=== PATIENT | female | born 1995 | race Caucasian/White ===

== ENCOUNTER 2021-11-25 09:24 | Emergency (ER) | payer BC, SELFPAY ==
--- NOTE | ~2021-11-25 | US_ITS ---
EXAMINATION: US OB limited, US OB transvaginal DATE: 11/25/2021 10:44 INDICATION: Cramping during second trimester TECHNIQUE: Real-time transabdominal and transvaginal ultrasound of the pelvis was performed. The [facility] radiologist was not present for the study. COMPARISON: None. FINDINGS: There is a single living fetus in transverse lie. The placenta is anterior and 1.3 cm from the internal cervical os. cardiac activity and movement are noted. heart rate is 14 1 beats per minute (bpm). The amniotic fluid index is subjectively normal. IMPRESSION: 1. Single living fetus in transverse lie. 2. Low-lying placenta. Reviewed, dictated and finalized at location A. ATIONS TECHNICIAN IMPRESSION: 1. Single living fetus in transverse lie. 2. Low-lying placenta.
[2021-11-25 09:30] VITALS: BP 117/70; PULSE 78; RESP 20; TEMP 36.8; O2SAT 98
--- NOTE | 2021-11-25 10:02 | ED.GENADULT ---
HPI - General Adult General Chief complaint: Abdominal Pain Stated complaint: 18 WEEKS PREG CRAMPS AND LIGHT HEADED Source: patient Mode of arrival: ambulatory History of Present Illness HPI narrative: Amber is a 26 at 18 weeks (was fertilized by IVF) with a PMH of hypothyroidism that presented to the ED with abdominal cramping that woke up up this morning. It is lower abdominal pain that comes and goes. There is nausea but no vomiting. There is no CP, SOB or cough. She denies vaginal discharge and vaginal bleeding. Related Data Home Medications Medication Instructions Recorded Confirmed levothyroxine 50 mcg PO DAILY 11/25/21 11/25/21 Review of Systems Constitutional: Constitutional: Reports no additional constitutional complaints Eyes: Eyes: Reports no additional eye complaints ENT: Reports system reviewed and no additional complaints, except as documented Cardiovascular: Cardiovascular: Reports no additional cardiovascular complaints Respiratory: Respiratory: Reports no additional respiratory complaints Gastrointestinal: Gastrointestinal: Reports as per HPI Genitourinary: Genitourinary: Reports as per HPI Musculoskeletal: Musculoskeletal: Reports no additional musculoskeletal complaints Integumentary/Breasts: Skin/Breast: Reports system reviewed and no additional complaints, except as docu Neurologic: Reports system reviewed and no additional complaints, except as documented Psychiatric: Psychiatric: Reports no additional psychiatric complaints Endocrine: Endocrine: Reports no additional endocrine complaints Hematologic/Lymphatic: Hematologic/Lymphatic: Reports no additional hematologic/lymphatic complaints Allergic/Immunologic: Allergic/Immunologic: Reports no additional allergic/immunologic complaints Exam Const: General: no acute distress and alert Orientation/consciousness: patient oriented x3 Limitations: No altered mental status HENMT: Head: normal to inspection Other: normocephalic, atraumatic Eyes: Pupils: Equal, round and reactive pupils present Neck: Neck: normal visual inspection Chest: Chest palpation & inspection: normal inspection of the chest Resp: Effort & Inspection: normal respiratory effort, not labored and not tachypneic Cardio: Rate: regular rate GI: Inspection: non-distended GI Palp: Yes Soft to palpation, No Tenderness to palpation present (GI) and No Guarding due to palpation present (GI) : General: Yes no CVA tenderness Back/Spine/Pelvis: Back: no CVA tenderness Skin: General skin exam: normal color Rashes: no rashes Neuro: General: patient oriented x3 and moves all extremities Extrem: General: normal to inspection Psych: Appearance: grossly normal Mental Status: mental status grossly normal Course Course Emergency Course: Declined meds for pain or nausea. Ordered labs and US. DD/ 52TD/TT: / EXAMINATION: US OB limited, US OB transvaginal DATE: 11/25/2021 10:44 INDICATION: Cramping during second trimester TECHNIQUE: Real-time transabdominal and transvaginal ultrasound of the pelvis was performed. The interpreting radiologist was not present for the study. COMPARISON: None. FINDINGS: There is a single living fetus in transverse lie. The placenta is anterior and 1.3 cm from the internal cervical os. cardiac activity and movement are noted. heart rate is 141 beats per minute (bpm). The amniotic fluid index is subjectively normal. IMPRESSION: 1. Single living fetus in transverse lie. 2. Low-lying placenta. Labs and US are reassuring. She was instructed to follow up with her OB physician. Medical Decision Making Lab Data Result diagrams: 11/25/21 10:15 11/25/21 10:15 Labs: Lab Results 11/25/21 11/25/21 11/25/21 Range/Units 10:15 10:15 10:15 WBC 8.0 (4.8-10.8) K/mm3 RBC 3.69 L (4.20-5.40) M/mm3 Hgb 11.4 L (12.0-15.0) g/dL Hct 33.5 L (35.
[2021-11-25 10:23] LABS: Basophils Absolute Auto 0.02 K/mm3 (0.00-0.10); Basophils Percent Auto 0.3 % (0.0-1.0); Eosinophils Absolute Auto 0.03 K/mm3 (0.02-0.50); Eosinophils Percent Auto 0.4 % (1.0-6.0); Hematocrit 33.5 % (35.0-49.0); Hemoglobin 11.4 g/dL (12.0-15.0); Immature Granulocyte Absolute 0.02 K/mm3 (0.00-0.00); Immature Granulocyte Percent A 0.3 % (0.0-0.0); Lymphocytes Percent Auto 11.3 % (18.0-42.0); Mean Corpuscular Hemoglobin 30.9 pg (27.0-31.0); Mean Corpuscular Volume 90.8 fL (78.0-102.0); Mean Platelet Volume 11.1 fl (9.2-11.8); Monocytes Absolute Auto 0.45 K/mm3 (0.10-0.90); Monocytes Percent Auto 5.6 % (2.0-11.0); Neutrophils Absolute Auto 6.6 K/mm3 (1.7-7.2); Neutrophils Percent Auto 82.1 % (50.0-70.0); Platelet Count Result 160 K/mm3 (150-420); Red Blood Count 3.69 M/mm3 (4.20-5.40); Red Cell Distribution Width 12.4 % (11.6-14.4)
[2021-11-25 10:25] LABS: Add Urine Microscopic? NO; Appearance Urine Clear (Clear); Bilirubin Urine Negative (Negative); Blood Urine Negative (Negative); Color Urine Yellow (Yellow); Glucose Urine UA Negative (Negative); Ketones Urine Negative (Negative); Leukocyte Esterase Ur Negative (Negative); Nitrate Urine Negative (Negative); Protein Urine Negative (Negative); Urobilinogen Urine 0.2 mg/dL (0.2-1.0)
[2021-11-25 10:31] LABS: Prothrombin Time 10.2 Seconds (9.50-12.10)
[2021-11-25 10:46] LABS: Alanine Aminotransferase 26 U/L (14-59); Albumin Level 3.1 g/dL (3.4-5.0); Alkaline Phosphatase 42 U/L (46-116); Anion Gap 10 mmol/L (8-16); Aspartate Amino Transferase 16 U/L (15-37); Bilirubin,Total 0.2 mg/dL (0.00-1.00); Blood Urea Nitrogen 8 mg/dL (7-18); Calcium 8.6 mg/dL (8.5-10.1); Carbon Dioxide 24 mmol/L (21-32); Chloride 102 mmol/L (98-108); Estimated Glomerular Filt Rate > 60; Glucose 99 mg/dL (70-99); Lipase 52 U/L (73-393); Osmolality Calculated 280 mOsm/kg (285-295); Potassium 3.9 mmol/L (3.5-5.1); Sodium 136 mmol/L (136-145); Thyroid Stimulating Hormone 2.29 uIU/mL (0.36-3.74); Total Protein 6.9 g/dL (6.4-8.2)
[2021-11-25 10:54] LABS: Lactic Acid Reflex < 0.3 mmol/L (0.4-2.0)
== END 2021-11-25 11:09 | disposition home or self-care (01) ==
PROVIDERS: Emergency Provider Family Medicine; PCP Physician Assistant
DX: R10.9 Unspecified abdominal pain (principal)
CPT/HCPCS: 36415; 76815; 76817; 80053; 81003; 83605; 83690; 84443; 85025; 85610; 99284

== ENCOUNTER 2022-04-21 15:43 | Inpatient (IN) | payer BC, SELFPAY ==
[2022-04-21] VITALS (21 sets, daily range): BP systolic 97–146; BP diastolic 71–98; PULSE 65–91; TEMP 36.6–36.9; O2SAT 94–96; BMI 33.2
--- OUTSIDE RECORDS SUMMARY | 2022-04-21 15:54 | XMS_ITS ---
:1995 Author Care Team Providers Name Role Phone [facility] Primary Care Provider [phone] Allergies Code Code System Name Reaction Severity Status Onset NKDA ? Medications Name Status Start Date Stop Date ? ? azithromycin 250 mg tablet Completed ? 10/18 Baby Aspirin Active ? Not available Cetrotide 0.25 mg subcutaneous kit Completed ? 10/18/2021 chorionic gonadotropin, human 10,000 unit intramuscular Complete d ? 11/22/2021 solution doxycycline hyclate 100 mg capsule Completed ? 11/22/2021 estradiol 2 mg tablet Completed ? 11/22/2021 Gonal-F RFF Redi-Ject 900 unit/1.5 mL subcutaneous pen Completed ? 11/22/2021 injector leuprolide 1 mg/0.2 mL subcutaneous kit Completed ? 11/22/2021 levothyroxine 25 mcg tablet Completed ? 10/08 levothyroxine 50 mcg tablet Active ? Not available Menopur 75 unit subcutaneous solution Completed ? 11/22/2021 Marie 0.25 mg-35 mcg tablet Completed ? 11/22 Active ? Not available progesterone 50 mg/mL intramuscular oil Completed ? 11/22/2021 Problems Name Status Onset Date Source ? Male Infertility Active 01/24/2021 ? Active 10/18/2021 ? Hypothyroidism Active ? ? Care: History of Infertility Active ? ? IVF - In-vitro Fertilization Active ? ? Procedures Date Name Performed by ? 12/06/2017 Appendectomy Information not avai lable 01/21/2021 , Transvaginal [place] [address] [place], [place] [address]
--- OUTSIDE RECORDS SUMMARY | 2022-04-21 15:55 | XMS_ITS | Encounter Summary ---
:1995 Author Care Team Providers Name Role Phone Shona [facility] Primary Care Provider [phone] Reason for Visit None recorded. Assessment and Plan 1. IVF - in-vitro fertilization pregnan cy ? non-stress test Discussion Note: None recorded.Patient educational handouts: No information available. Plan of Care Reminders Provider Appointments Nst 04/25/2022 9:30AM Nst, , EQUIP ? Ob Routine 04/25/2022 10:30AM Connie Marie MD ? U/S OB BPP 04/25/2022 10:00AM Ultrasound, TECH ? Nst 05/02/2022 9:00AM Nst, , EQUIP ? / OB BPP 05/02/2022 9:30AM Ultrasound, TECH ? Ob Routine 05/09/2022 10:30AM Connie Marie MD ? U/S OB BPP 05/09/2022 10:00AM Ultrasound, TECH ? Nst 05/09/2022 9:30AM Nst, , EQUIP Lab None recorded. ? ? Referral None recorded. ? ? Procedures None recorded. ? ? Surgeries None recorded. ? ? Imaging Non-stress Test 04/11/2022 [place] Medications Name Start Date ? ? Baby Aspirin ? levothyroxine 50 mcg tablet ? Take 1 tablet every day by oral route. ? Medications Administered None recorded. Vitals None recorded. Results Lab Results None recorded. Allergies Code Code System Name Reaction Severity Onset NKDA ? ? ? Problems Name Status Onset Date Source ? Male Infertility Active 01/24/2021 ? Active 10/18/2021 ? Hypothyroidism Active ? ? Care: History of Infertility Active ? ?
--- OUTSIDE RECORDS SUMMARY | 2022-04-21 15:55 | XMS_ITS | Encounter Summary ---
:1995 Author Care Team Providers Name Role Phone Shona [facility] Primary Care Provider [phone] Reason for Visit None recorded. Assessment and Plan 1. IVF - in-vitro fertilization pregnan cy ? US, obstetric, biophysical profile + non-stress test Discussion Note: None recorded.Patient educational handouts: No information available. Plan of Care Reminders Provider Appointments Nst 04/25/2022 Nst, , EQUIP 9:30AM ? Ob Routine 04/25/2022 Connie mcadams MD 10:30AM ? U/S OB BPP 04/25/2022 Ultrasound, [place] 10:00AM ? Nst 05/02/2022 Nst, , EQUIP 9:00AM ? U/S OB BPP 05/02/2022 Ultrasound, [place] 9:30AM ? Ob Routine 05/09/2022 Connie mcadams MD 10:30AM ? U/S OB BPP 05/09/2022 Ultrasound, [place] 10:00AM ? Nst 05/09/2022 Nst, , [place]QU[place] 9:30AM Lab None recorded. ? ? Referral None recorded. ? ? Procedures None recorded. ? ? Surgeries None recorded. ? ? Imaging US, Obstetric, Biophysical 04/18/2022 [place] Profile + Non-stress Test Medications Name Start Date ? ? Baby Aspirin ? levothyroxine 50 mcg tablet ? Take 1 tablet every day by oral route. ? Medications Administered None recorded. Vitals None recorded. Results Lab Results
--- OUTSIDE RECORDS SUMMARY | 2022-04-21 15:55 | XMS_ITS | Encounter Summary ---
:1995 Author Care Team Providers Name Role Phone Shona [facility] Primary Care Provider [phone] Reason for Visit OB visit Assessment and Plan 1. Hypothyroidism 2. IVF - in-vitro fertilization pregnan cy 3. care: history of infertili ty Discussion Note: None recorded.Patient educational handouts: No information available. Plan of Care Reminders Provider Appointments Nst 04/25/2022 9:30AM Nst, , EQUIP ? Ob Routine 04/25/2022 10:30AM Connie Marie MD ? /S OB BPP 04/25/2022 10:00AM Ultrasound, TECH ? Nst 05/02/2022 9:00AM Nst, , EQUIP ? / OB BPP 05/02/2022 9:30AM Ultrasound, TECH ? Ob Routine 05/09/2022 10:30AM Connie Marie MD ? / OB BPP 05/09/2022 10:00AM Ultrasound, TECH ? Nst 05/09/2022 9:30AM Nst, , EQUIP Lab None recorded. ? ? Referral None recorded. ? ? Procedures None recorded. ? ? Surgeries None recorded. ? ? Imaging None recorded. ? ? Medications Name Start Date ? ? Baby Aspirin ? levothyroxine 50 mcg tablet ? Take 1 tablet every day by oral route. ? Medications Administered None recorded. Vitals Height Weight BMI Blood Pressure 5 ft 9 in 232 lbs 34.3 kg/m2 118/77 mm[Hg] Results Lab Results None recorded. Allergies Code Code System Name Reaction Severity Onset NKDA ? ? ? Problems Name Status Onset Date Source ? Male Infertility Active 01/24/2021 ?
--- OUTSIDE RECORDS SUMMARY | 2022-04-21 15:55 | XMS_ITS | Encounter Summary ---
:1995 Author Care Team Providers Name Role Phone Shona [facility] Primary Care Provider [phone] Reason for Visit None recorded. Assessment and [...] None recorded. ? ? Imaging Non-stress Test 04/04/2022 [place] Medications Name Start Date ? ? Baby [...]
--- OUTSIDE RECORDS SUMMARY | 2022-04-21 15:55 | XMS_ITS | Encounter Summary ---
:1995 Author Care Team Providers Name Role Phone Shoan [facility] Primary Care Provider [phone] Reason for Visit None recorded. Assessment and Plan 1. care: history of infertili ty ? US, obstetric, follow-up ? US, obstetric, biophysical profile + non-stress [...] None recorded. ? ? Imaging US, Obstetric, Follow-up 04/04/2022 [place] ? US, Obstetric, Biophysical 04/04/2022 [place] Profile + Non-stress Test Medications Name Start Date ? ? Baby Aspirin ? levothyroxine 50 mcg tablet ? Take 1 tablet every day by oral route. ? Medications Administered
--- OUTSIDE RECORDS SUMMARY | 2022-04-21 15:55 | XMS_ITS | Encounter Summary ---
:1995 Author Care Team Providers Name Role Phone Shona [facility] Primary Care Provider [phone] Reason for Visit OB visit Assessment and Plan 1. care: history of infertili ty 2. Hypothyroidism 3. IVF - in-vitro fertilization pregnan cy Discussion Note: None recorded.Patient educational handouts: No information available. Plan of Care Reminders Provider Appointments Nst 04/25/2022 9:30AM Nst, , EQUIP ? Ob Routine 04/25/2022 10:30AM Connie Marie MD ? / OB BPP 04/25/2022 10:00AM Ultrasound, TECH ? [...] BMI Blood Pressure 5 ft 9 in 228 lbs 33.7 kg/m2 101/68 mm[Hg] Results Lab Results None recorded. Allergies Code Code System Name Reaction Severity Onset NKDA ? ? ? Problems Name Status Onset Date Source ? Male Infertility Active 01/24/2021 ?
--- OUTSIDE RECORDS SUMMARY | 2022-04-21 15:55 | XMS_ITS ---
:1995 Author Care Team Providers Name Role Phone COURTNEY ALVARADO MD [employer] [phone] Allergies Code Code System Name Reaction Severity Status Onset NKDA ? Medications Name Status Start Date Stop Date ? ? Microgestin FE 10/27 (28) 1 mg-20 mcg (21)/75 mg (7) tablet Activ e ? Not available Take 1 tablet every day by oral route. Mirena 20 mcg/24 hours (7 yrs) 52 mg intrauterine device Active ? Not available Take by intrauterine route. Problems No Known Problems Procedures Date Name Performed by ? 12/06/2018 Appendectomy Information not avai lable Results Lab Results None recorded. Past Encounters None recorded. Social History Tobacco Smoking Status Never Smoker Vaccine List None recorded. Plan of Care Reminders Provider Appointments None recorded. ? ? Lab None recorded. ? ? Referral None recorded. ? ? Procedures None recorded. ? ? Surgeries None recorded. ? ? Imaging None recorded. ? ? Vitals Height Weight BMI Blood Pressure 5 ft 9 in 181 lbs 9.6 oz 26.8 kg/m2 120/80 mm[Hg]
--- OUTSIDE RECORDS SUMMARY | 2022-04-21 15:55 | XMS_ITS | Encounter Summary ---
:1995 Author Care Team Providers Name Role Phone Shona [facility] Primary Care Provider [phone] Reason for Visit OB visit Assessment and Plan 1. care: history of infertili ty 2. IVF - in-vitro fertilization pregnan cy 3. Hypothyroidism Discussion Note: None recorded.Patient educational handouts: No [...] BMI Blood Pressure 5 ft 9 in 230 lbs 34 kg/m2 112/70 mm[Hg] Results Lab Results None recorded. Allergies Code Code System Name Reaction Severity Onset NKDA ? ? ? Problems Name Status Onset Date Source ? Male Infertility Active 01/24/2021 ?
--- OUTSIDE RECORDS SUMMARY | 2022-04-21 15:55 | XMS_ITS | Encounter Summary ---
:1995 Author Care Team Providers Name Role Phone Shona [facility] Primary Care Provider [phone] Reason for Visit OB visit Assessment and Plan 1. care: history of infertili ty 2. IVF - in-vitro fertilization pregnan cy Discussion [...] BMI Blood Pressure 5 ft 9 in 235 lbs 34.7 kg/m2 130/77 mm[Hg] Results Lab Results None recorded. Allergies Code Code System Name Reaction Severity Onset NKDA ? ? ? Problems Name Status Onset Date Source ? Male Infertility Active 01/24/2021 ? Active 10/18/2021 ?
--- OUTSIDE RECORDS SUMMARY | 2022-04-21 15:55 | XMS_ITS | Encounter Summary ---
:1995 Author Care Team Providers Name Role Phone Shona [facility] Primary Care Provider [phone] Reason for Visit OB visit Assessment and Plan 1. Routine care 2. Hypothyroidism ? levothyroxine 50 mcg tablet 3. IVF - in-vitro fertilization pregnan cy [...] ft 9 in 228 lbs 33.7 kg/m2 102/66 mm[Hg] Results Lab Results None recorded. Allergies Code Code System Name Reaction Severity Onset NKDA ? ? ? Problems Name Status Onset Date Source ? Male Infertil
--- OUTSIDE RECORDS SUMMARY | 2022-04-21 15:55 | XMS_ITS | Encounter Summary ---
:1995 Author Care Team Providers Name Role Phone Shona [facility] Primary Care Provider [phone] Reason for Visit OB visit OB [id number] EDC 04/28/2022 LMP 01/11/2021 Assessment and Plan Assessment Note Patient is _37__weeks . Discuss ed plan. 1. Routine care Discussion Note: None recorded.Patient educational handouts: No [...] ft 9 in 235 lbs 34.7 kg/m2 113/74 mm[Hg] Results Lab Results None recorded. Allergies Code Code System Name Reaction Severity Onset NKDA ? ? ? Problems Name Status Onset Date Source ?
--- OUTSIDE RECORDS SUMMARY | 2022-04-21 15:55 | XMS_ITS | Encounter Summary ---
:1995 Author Care Team Providers Name Role Phone Shona [facility] Primary Care Provider [phone] Reason for Visit None recorded. Assessment and [...] recorded. ? ? Imaging US, Obstetric, Biophysical 04/11/2022 [place] Profile + Non-stress Test Medications Name Start Date ? ? Baby Aspirin ? levothyroxine 50 mcg tablet ? Take 1 tablet every day by oral route. ? Medications Administered None recorded. Vitals None recorded. Results Lab Results
--- OUTSIDE RECORDS SUMMARY | 2022-04-21 15:55 | XMS_ITS | Encounter Summary ---
:1995 Author Care Team Providers Name Role Phone Shona [facility] Primary Care Provider [phone] Reason for Visit None recorded. Assessment and [...] None recorded. ? ? Imaging Non-stress Test 04/18/2022 [place] Medications Name Start Date ? ? Baby [...]
--- OUTSIDE RECORDS SUMMARY | 2022-04-21 15:55 | XMS_ITS | Encounter Summary ---
:1995 Author Care Team Providers Name Role Phone Shona [facility] Primary Care Provider [phone] Reason for Visit OB visit Assessment and Plan 1. care: history of infertili ty 2. Hypothyroidism Discussion Note: None recorded.Patient educational handouts: [...] BMI Blood Pressure 5 ft 9 in 237 lbs 35 kg/m2 132/74 mm[Hg] Results Lab Results None recorded. Allergies Code Code System Name Reaction Severity Onset NKDA ? ? ? Problems Name Status Onset Date Source ? Male Infertility Active 01/24/2021 ? Active 10/18/2021 ? Hypothyroidism Ac
[2022-04-21] MEDS: OXYTOCIN 30 UNITS/NS 500 ML 30 UNITS/500 ML BAG IV CONT (17:00)
[2022-04-21] MEDS: LACTATED RINGERS 1,000 ML 125 ML IV CONT (17:00)
[2022-04-21 17:15] LABS: Basophils Percent Auto 0.3 % (0.2-1.2); Eosinophils Percent Auto 0.7 % (0-4.4); Hematocrit 29.4 % (37.0-47.0); Hemoglobin 9.4 g/dL (12.0-15.0); Immature Granulocyte Absolute 0.02 K/mm3 (0.00-0.031); Immature Granulocyte Percent A 0.3 % (0-0.5); Lymphocytes Absolute Auto 1.11 K/mm3 (0.9-3.2); Lymphocytes Percent Auto 18.6 % (18.3-44.2); Mean Corpuscular Hemoglobin 26.8 pg (26-34); Mean Corpuscular Volume 83.8 fl (80-100); Monocytes Absolute Auto 0.5 K/mm3 (0.1-0.6); Monocytes Percent Auto 8.2 % (2.6-8.5); Neutrophils Absolute Auto 4.3 K/mm3 (1.3-6.7); Neutrophils Percent Auto 71.9 % (45.5-73.1); Platelet Count Result 155 k/mm3 (150-375); Red Blood Count 3.51 M/mm3 (4.2-5.4); Red Cell Distribution Width 14.6 % (11.5-14.5)
--- NOTE | 2022-04-21 18:56 | LDADM ---
This patient, Amber Fuentes, was admitted to Labor/Delivery/Recovery 104 on 04/21/22 at 15:43. Plans for labor, pain management and were discussed with patient. Patient/family oriented to hospital policies and general routines including ID bracelet, bed and alarms, visiting hours, pain management, procedures, bathroom and other care routines, personal items, smoking policy, room service/diet and guest tray routines, security routines, and visiting hours. Patient/Family are encouraged to report perceived risks to care and to ask questions if they do not understand what they are told or what they should do. See OBIX for further documentation.
--- NOTE | 2022-04-21 18:58 | WPDANESEPP ---
Anes - Eval Pre Procedure Procedure: Labor epidural Date/Time: 04/21/22 18:58 Surgeon: Frank Preop Diagnosis: Abd pain with contractions Pre Op Diagnosis: Induction of Labor Patient Data Age: 26 Gender: F Height: Weight: Last Vital Signs Pulse 87 04/21/22 18:30 BP 123/98 H 04/21/22 18:30 Allergies Allergy/AdvReac Type Severity Reaction Status Date / Time No Known Allergies Allergy Verified 04/01/22 15:31 Home Medications Medication Instructions Recorded Confirmed Type levothyroxine 50 mcg tablet 50 mcg PO DAILY 11/25/21 11/25/21 History ferrous sulfate 195 mg (39 mg 35 mg PO DAILY 04/01/22 04/01/22 History iron) tablet prenat.vits,coral,jof-gpgd-fupsu 1 tablet PO DAILY 04/01/22 04/01/22 History Laboratory Tests 04/21/22 04/21/22 04/21/22 17:06 17:06 17:06 WBC 6.0 K/mm3 K/mm3 (4.5-10.0) RBC 3.51 M/mm3 L M/mm3 (4.2-5.4) Hgb 9.4 g/dL L g/dL (12.0-15.0) Hct 29.4 % L % (37.0-47.0) MCV 83.8 fl fl (80-100) MCH 26.8 pg pg (26-34) MCHC 32.0 g/dl g/dl (32-36) RDW 14.6 % H % (11.5-14.5) Plt Count 155 k/mm3 k/mm3 (150-375) MPV 12.0 fl H fl (7.4-10.4) Immature Gran % (Auto) 0.3 % % (0-0.5) Neut % (Auto) 71.9 % % (45.5-73.1) Lymph % (Auto) 18.6 % % (18.3-44.2) [place] % (Auto) 8.2 % % (2.6-8.5) Eos % (Auto) 0.7 % % (0-4.4) Baso % (Auto) 0.3 % % (0.2-1.2) Lymph # (Auto) 1.11 K/mm3 K/mm3 (0.9-3.2) [place] # (Auto) 0.5 K/mm3 K/mm3 (0.1-0.6) Eos # (Auto) 0.0 K/mm3 K/mm3 (0-0.3) Baso # (Auto) 0.0 K/mm3 K/mm3 (0.0-0.1) Abs Immat Gran (auto) 0.02 K/mm3 K/mm3 (0.00-0.031) Absolute Neuts (auto) 4.3 K/mm3 K/mm3 (1.3-6.7) Absolute Nucleated RBC 0.0 K/mm3 K/mm3 (0.0-0.012) Nucleated RBC % 0.0 % % (0.0-0.2) RPR Pending Blood Type A Positive Antibody Screen Pending HCG: positive Patient hx anesthesia problems: none Family hx anesthesia problems: none Results Review: All pre-operative results and documents have been reviewed as part of the pre-operative evaluation. [facility] Past Medical History Medical History (Updated 04/21/22 @ 19:00 by Gilbert Fay CRNA) Overweight (BMI 25.0-29.9) and not yet delivered Family History Family History Other Healthy adult Social History Social History Substance use: never Spiritual care concerns: No Exam Day of Procedure 04/21/22 18:58 Patient weight: overweight Airway: Mallampati scale class II Neurological: alert and oriented
--- NOTE | 2022-04-21 19:08 | P.HP_ITS ---
H&P: HPI History of Present Illness Date/Time: 04/21/22 19:08 Chief Complaint: induction of labor Narrative: Amber is a 26yo G1 at 39.0 for IOL, elective. complicated by hypothyroidism, and IVF for male factor, sperm donor. GBS neg. Review of Systems Review of Systems: All systems reviewed & are unremarkable except as noted in HPI and below PMFSH Past Medical History Medical History (Updated 04/21/22 @ 19:13 by Connie Marie MD) Overweight (BMI 25.0-29.9) and not yet delivered Family History Family History Other Healthy adult Social History Social History Smoking status: Never smoker Substance use: never Spiritual care concerns: No Meds Home Medications and Allergies Home Medications Medication Instructions Recorded Confirmed Type levothyroxine 50 mcg tablet 50 mcg PO DAILY 11/25/21 04/21/22 History ferrous sulfate 195 mg (39 mg 35 mg PO DAILY 04/01/22 04/21/22 History iron) tablet prenat.vits,coral,bpu-toxh-hufhx 1 tablet PO DAILY 04/01/22 04/21/22 History Allergies Allergy/AdvReac Type Severity Reaction Status Date / Time No Known Allergies Allergy Verified 04/01/22 15:31 Vital Signs Vital Signs - 24 hr 04/21/22 16:15 04/21/22 16:30 04/21/22 16:45 Pulse Rate 70 75 76 Blood Pressure 128/77 122/75 120/76 Oxygen Delivery 04/21/22 17:00 04/21/22 17:15 04/21/22 17:30 Pulse Rate 68 68 73 Blood Pressure 114/71 118/73 130/75 Oxygen Delivery 04/21/22 18:00 04/21/22 18:30 04/21/22 19:00 Pulse Rate 74 87 76 Blood Pressure 132/74 123/98 H 119/76 Oxygen Delivery 04/21/22 17:00 Pulse Rate Blood Pressure Oxygen Delivery Room Air Exam Const: General: no acute distress Resp: Effort & Inspection: normal respiratory effort Auscultation: clear to auscultation bilaterally Cardio: Rate: regular rate Rhythm: regular rhythm GI: GI Palp: Yes Soft to palpation Extrem: General: normal to inspection H&P: Results Labs Labs: Short CBC 04/21/22 Range/Units 17:06 WBC 6.0 (4.5-10.0) K/mm3 Hgb 9.4 L (12.0-15.0) g/dL Hct 29.4 L (37.0-47.0) % Plt Count 155 (150-375) k/mm3 Assessment and Plan Assessment and plan (1) conceived through in vitro fertilization: Code(s): O09.819 - Supervision of resulting from assisted reproductive t echnology, unspecified trimester Status: Acute (2) Anemia: Code(s): D64.9 - Anemia, unspecified Status: Acute Additional Plan Here for induction of labor- elective GBS neg AROM clear 1.5/-2 FHT category 1
[2022-04-21] MEDS: fentaNYL CITRATE INJ (*CRX) 100 MCG/2 ML VIAL 50 MCG IV PUSH (23:45)
[2022-04-22] VITALS (147 sets, daily range): BP systolic 95–169; BP diastolic 50–138; PULSE 64–137; RESP 16–18; TEMP 35.9–37.1; O2SAT 93–100
[2022-04-22] MEDS: LACTATED RINGERS 1,000 ML 125 ML IV CONT
[2022-04-22] MEDS: fentaNYL CITRATE INJ (*CRX) 100 MCG/2 ML VIAL 50 MCG IV PUSH (00:05)
[2022-04-22] MEDS: fentaNYL CITRATE INJ (*CRX) 100 MCG/2 ML VIAL IV PUSH (01:05)
[2022-04-22] MEDS: METHYLERGONOVINE MALEATE 0.2 MG/ML VIAL IM (06:55)
[2022-04-22] MEDS: miSOPROStol 200 MCG TABLET 800 MCG (07:04)
[2022-04-22] MEDS: OXYTOCIN 30 UNITS/NS 500 ML 30 UNITS/500 ML BAG 999 UNITS IV CONT (07:10)
[2022-04-22] MEDS: ceFAZolin 2 GM/D5W 50 ML 2 GM/50 ML BAG IVPB (07:18)
--- NOTE | 2022-04-22 07:21 | PM.OBPRVD ---
OB - Delivery Note Procedure Delivery date: 04/22/22 Procedure: Induction method: AROM and Per Pitocin Protocol Delivery monitor: External FHT and Internal Uterine Route of delivery: Laceration Description: Perineal - 2nd Degree Delivery repair: vicryl Quantitative Blood Loss (ml): 815 Anesthesia type: Epidural Disposition: Floor Complications: hemorrhage due to atony. membranes teased out with ring forceps. treated with pitocin, methergine, cytotec. manually removed clots x5. ancef 2gm given. atony gradually resolved. mom temp 100.5 right at delivery. Narrative: With adequate expulsive efforts by the mother, the baby's head was delivered OA. The baby's anterior shoulder was delivered under the pubic symphysis without difficulty. The posterior shoulder and the rest of the baby delivered without difficulty. The infant was placed on the mothers chest and suctioned and stimulated. The cord was clamped and cut after 30 seconds. Mother and baby both stable. [place] Baby Date of : 04/22/22 Time of : 06:35 Weeks of gestation at delivery: 39 gender: Female Weight (pounds): 9 Weight (ounces): 6 presentation: vertex position: Left Occiput Posterior Placenta delivery description: Spontaneous Cord Vessel Description: 3 Vessels and Delayed Cord Clamping score one minute: 8 score five minutes: 9
[2022-04-22] MEDS: IBUPROFEN 600 MG TABLET (07:26)
[2022-04-22 11:30] LABS: Basophils Percent Auto 0.2 % (0.2-1.2); Hemoglobin 9.1 g/dL (12.0-15.0); Immature Granulocyte Absolute 0.08 K/mm3 (0.00-0.031); Immature Granulocyte Percent A 0.6 % (0-0.5); Lymphocytes Absolute Auto 0.74 K/mm3 (0.9-3.2); Lymphocytes Percent Auto 5.2 % (18.3-44.2); Mean Corpuscular HGB Conc 32.5 g/dl (32-36); Mean Corpuscular Hemoglobin 26.8 pg (26-34); Mean Corpuscular Volume 82.4 fl (80-100); Mean Platelet Volume 11.7 fl (7.4-10.4); Monocytes Absolute Auto 0.8 K/mm3 (0.1-0.6); Monocytes Percent Auto 5.7 % (2.6-8.5); Neutrophils Absolute Auto 12.6 K/mm3 (1.3-6.7); Neutrophils Percent Auto 88.3 % (45.5-73.1); Platelet Count Result 144 k/mm3 (150-375); Red Cell Distribution Width 14.6 % (11.5-14.5); White Blood Count 14.3 K/mm3 (4.5-10.0)
[2022-04-22] MEDS: IBUPROFEN 600 MG TABLET PO ×2 (14:30→21:04)
[2022-04-22 15:25] LABS: Hemoglobin 8.7 g/dL (12.0-15.0)
--- NOTE | 2022-04-22 15:25 | PC.NURSE ---
0920 Patient transferred to post room #283 via wheelchair( ). Support person present. Oriented to unit, room, information board, rooming in, admission packet and security measures. Patient verbalizes understanding.
[2022-04-22] MEDS: DOCUSATE SODIUM 100 MG CAPSULE PO (16:47)
[2022-04-23 03:30] VITALS: BP 110/69; PULSE 77; RESP 18; TEMP 36.6; O2SAT 99
[2022-04-23 05:43] LABS: Hematocrit 26.7 % (37.0-47.0); Hemoglobin 8.3 g/dL (12.0-15.0)
[2022-04-23] MEDS: DOCUSATE SODIUM 100 MG CAPSULE PO (06:30)
[2022-04-23] MEDS: LANOLIN (LANSINOH) 7.5 GM CREAM 1 APPLIC TOPICAL (06:30)
[2022-04-23] MEDS: POLYSACCHARIDE IRON COMPLEX 150 MG CAPSULE PO (06:30)
[2022-04-23] MEDS: BENZOCAINE 20% AER SPR (*SP) 56 GM CAN 1 SPRAY TOPICAL (06:30)
[2022-04-23] MEDS: IBUPROFEN 600 MG TABLET PO (06:30)
[2022-04-23] MEDS: LEVOTHYROXINE SODIUM 50 MCG TABLET PO (06:30)
[2022-04-23] MEDS: MULTIVIT/MIN/PREN/FOL AC/IRON TABLET 1 TAB PO (06:30)
[2022-04-23 07:15] VITALS: BP 119/74; PULSE 87; RESP 14; RESP 18; TEMP 36.8; O2SAT 99
[2022-04-23] MEDS: WITCH HAZEL 40 PADS 1 PAD TOPICAL (08:34)
--- NOTE | 2022-04-23 11:45 | P.PNOB_ITS ---
OB - PN: Subj Subjective Date/time seen: 04/23/22 11:45 Patient comments: no complaints and pain well controlled baby status: doing well and nursing well [place] feeding status: exclusively breast feeding Narrative: would like DC home tomorrow. OB - PN: Obj Data Labs CBC & Chem 7: 04/23/22 05:29 Labs: Laboratory Results - last 24 hr 04/22/22 04/23/22 15:14 05:29 Hgb 8.7 L 8.3 L Hct 27.0 L 26.7 L OB - PN A/P Plan day: 1 Plan: routine care Comments: Doing well. NO anemia sx except mild SOB. s/p IV iron yesterday. would like DC home today. Time Spent With Patient Time: Total time spent is greater than 50% in coordination of care (as documented) at patient's floor/unit and/or counseling patient: Time with patient: less than 15 minutes Exam Narrative: NAD abdomen soft, nontender, fundus firm below the umbilicus Extremities nontender, 1+ edema
--- NOTE | 2022-04-23 11:49 | PM.OBDSVD ---
DS: Admitting Diagnosis Discharge Date 04/23/22 Admitting Diagnosis term IUP DS: Discharge Diagnosis Discharge Diagnosis (1) , delivered: Code(s): O80 - Encounter for full-term uncomplicated delivery Status: Acute (2) Anemia: Code(s): D64.9 - Anemia, unspecified Status: Acute OB - DS: Summary Hospital Course Hospital Course: Amber was admitted for elective IOL at 39w for her IVF . She had an uncomplicated labor, delivery, and course, except for hemorrhage at delivery. She was anemic following delivery and received oral and IV iron. She was discharged home on PPD1 per her preference. OB Procedures : NST and Ultrasound OB Procedures Intrapartum: Spontaneous Vag Delivery OB Procedures: : None Peripartum Data Infant Delivery Method: Natural Vaginal Laceration Description: Perineal - 2nd Degree complications: none Status at Discharge Functional status at discharge: independent ambulation Time Spent with Patient Time attestation: Total time spent providing and/or coordinating discharge services: DS: Data Data Completed and Pending Labs on day of discharge: Labs from last 24 hours 04/23/22 04/22/22 05:29 15:14 Hgb 8.3 L 8.7 L Hct 26.7 L 27.0 L Discharge Plan Discharge Attending physician on discharge: Connie Marie Discharging Clinician: Connie Marie Anticipated Discharge Date/Time: 04/23/22 13:00 Patient Disposition: Home, Self-Care Activity: pelvic rest Diet: regular Patient Instructions: Antibiotic Form Stand Alone Forms: General Discharge Information Follow-up/Referrals: Connie Marie MD [Physician] - 4 Weeks Discharge Medications: Continued levothyroxine 50 mcg tablet 50 mcg PO DAILY ferrous sulfate 195 mg (39 mg iron) Tablet 35 mg PO DAILY #2 Tablet 1 tablet PO DAILY Date of admission: 04/21/22 15:43 Primary Care Provider: MagnusRyan Admitting Provider: Connie Marie Attending physician on admission: Connie Marie Condition: Stable
--- NOTE | 2022-04-23 12:04 | WPDANLDPN2 ---
Anes-Prog Note L&D Date/Time: 04/23/22 12:04 Comfortable throughout: labor and delivery Neuraxial method: epidural Epidural/Spinal procedure site: tender Neuro status: Neuro function grossly intact. Cardiovascular status: normal Respiratory status: normal Airway patency: baseline Mental status: baseline Post-Op hydration status: normal Vital Signs: Last Vital Signs Temp 98.2 F 04/23/22 07:15 Pulse 87 04/23/22 07:15 Resp 14 04/23/22 07:15 BP 119/74 04/23/22 07:15 Pulse Ox 99 04/23/22 07:15 O2 Del Method Room Air 04/23/22 07:15 Pain score (VAS): 0 Patient feedback: Patient satisfied with anesthetic care.
[2022-04-24 07:33] LABS: Rapid Plasma Reagin Non-Reactive (NonReactive)
[2022-04-26 10:51] VITALS: BP 125/72; PULSE 89; RESP 16; TEMP 37.3; O2SAT 99
== END 2022-04-23 13:53 | disposition home or self-care (01) | DRG 806 ==
LOC: ANHLDR 15:52 → ANHOB2 04-22 09:28
PROVIDERS: Admitting Provider Obstetrics & Gynecology; PCP Physician Assistant; Visit Provider Obstetrics & Gynecology
DX: O99.284 Endocrine, nutritional and metabolic diseases complicating childbirth (principal); O75.2 Pyrexia during labor, not elsewhere classified; Z37.0 Single live birth; O72.1 Other immediate postpartum hemorrhage; O99.02 Anemia complicating childbirth; E03.9 Hypothyroidism, unspecified; D64.9 Anemia, unspecified; O70.1 Second degree perineal laceration during delivery; O67.8 Other intrapartum hemorrhage; Z3A.39 39 weeks gestation of pregnancy
CPT/HCPCS: 36415; 85014; 85018; 85025; 86592; 86850; 86900; 86901; A9270; J0690; J2210; J2590; J2795; J3010; J7120

== ENCOUNTER 2024-02-22 15:58 | Emergency (ER) | payer OTHER, SELFPAY ==
[2024-02-22 15:58] VITALS: BP 116/77; PULSE 97; RESP 18; TEMP 36.5; O2SAT 97
--- NOTE | 2024-02-22 16:03 | ED.LOWEXIN ---
HPI - Extremity Injury (Lower) General Chief Complaint: Extremity Problem,Nontraumatic Stated Complaint: right foot swelling Time Seen by Provider: 02/22/24 16:02 Source: patient Mode of arrival: ambulatory Limitations: no limitations History of Present Illness HPI Narrative: 28-year-old female who is , 35 weeks presents to the ER with -- right leg swelling with redness. 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 The patient does not have any chest pain or shortness of breath. No prior history of DVT/ PE. No family history of DVT/ PE. MD complaint: other ( Right thigh/ right leg swelling) Related Data Home Medications Medication Instructions Recorded Confirmed ferrous sulfate 195 mg (39 mg 35 mg PO DAILY 04/01/22 02/22/24 iron) tablet prenat.vits,coral,yvk-thwa-ltvbd 1 tablet PO DAILY 04/01/22 02/22/24 levothyroxine 100 mcg tablet 100 mcg PO DAILY 02/22/24 02/22/24 Allergies Allergy/AdvReac Type Severity Reaction Status Date / Time No Known Allergies Allergy Verified 02/22/24 16:14 Review of Systems Review of Systems: All systems reviewed & are unremarkable except as noted in HPI and below Constitutional: Constitutional: Reports as per HPI and Reports no additional constitutional complaints Eyes: Eyes: Reports as per HPI and Reports no additional eye complaints ENT: Reports system reviewed and no additional complaints, except as documented and Reports as per HPI Cardiovascular: Cardiovascular: Reports as per HPI and Reports no additional cardiovascular complaints Respiratory: Respiratory: Reports as per HPI and Reports no additional respiratory complaints Gastrointestinal: Gastrointestinal: Reports as per HPI Comments: abdominal swelling from gravid uterus Genitourinary: Genitourinary: Reports no additional female genitourinary complaints Musculoskeletal: Musculoskeletal: Reports no additional musculoskeletal complaints and Reports as per HPI Comments: right thigh and right leg swelling with redness over the lower legs Integumentary/Breasts: Skin/Breast: Reports system reviewed and no additional complaints, except as docu and Reports as per HPI Neurologic: Reports system reviewed and no additional complaints, except as documented and Reports as per HPI Psychiatric: Psychiatric: Reports no additional psychiatric complaints and Reports as per HPI [facility] Past Medical History Medical History Overweight (BMI 25.0-29.9) and not yet delivered Family History Family History Other Healthy adult Social History Social History Smoking status: Never smoker Substance use: never Spiritual care concerns: No Exam Const: General: healthy appearing and no acute distress Nutritional Appearance: well nourished Orientation/consciousness: patient oriented x3 Limitations: no limitations HENMT: Head: normal to inspection Ears: external ears normal Face/Nose/Sinus: Normal external nose present Face and sinus: normal facial exam Throat: posterior oropharynx normal Eyes: Conjunctivae: conjunctivae normal Pupils: Equal, round and reactive pupils present EOM: EOMs intact bilaterally Direct Ophthalmoscopy: no photophobia Neck: Neck: normal visual inspection, no lymphadenopathy and no meningeal signs Chest: Chest palpation & inspection: normal inspection of the chest Resp: Effort & Inspection: normal respiratory effort Auscultation: clear to auscultation bilaterally Cardio: Rate: regular rate Rhythm: regular rhythm GI: GI Palp: Yes Soft to palpation Other: gravid uterus. heart rate of 150 : General: Yes no CVA tenderness Back/Spine/Pelvis: Back: no CVA tenderness Skin: General skin exam: normal color Rashes: no rashes Wounds: no wounds O
[2024-02-22 16:33] LABS: Basophils Absolute Auto 0.01 K/mm3 (0.00-0.10); Basophils Percent Auto 0.1 % (0.0-1.0); Eosinophils Absolute Auto 0.05 K/mm3 (0.02-0.50); Eosinophils Percent Auto 0.7 % (1.0-6.0); Hematocrit 31.3 % (35.0-49.0); Hemoglobin 10.3 g/dL (12.0-15.0); Immature Granulocyte Absolute 0.02 K/mm3 (0.00-0.00); Immature Granulocyte Percent A 0.3 % (0.0-0.0); Lymphocytes Absolute Auto 1.55 K/mm3 (1.10-4.50); Lymphocytes Percent Auto 22.4 % (18.0-42.0); Mean Corpuscular HGB Conc 32.9 g/dL (32-36); Mean Corpuscular Hemoglobin 29.1 pg (27.0-31.0); Mean Corpuscular Volume 88.4 fL (78.0-102.0); Mean Platelet Volume 11.1 fl (9.2-11.8); Monocytes Absolute Auto 0.63 K/mm3 (0.10-0.90); Monocytes Percent Auto 9.1 % (2.0-11.0); Neutrophils Absolute Auto 4.67 K/mm3 (1.70-7.20); Neutrophils Percent Auto 67.4 % (50.0-70.0); Platelet Count Result 166 K/mm3 (150-420); Red Blood Count 3.54 M/mm3 (4.20-5.40); Red Cell Distribution Width 14.1 % (11.6-14.4); White Blood Count 6.9 K/mm3 (4.8-10.8)
[2024-02-22 16:45] LABS: D Dimer 1.35 mg/L (0.19-0.50)
[2024-02-22 16:46] LABS: Alanine Aminotransferase 17 U/L (14-59); Albumin Level 2.2 g/dL (3.4-5.0); Alkaline Phosphatase 89 U/L (46-116); Anion Gap 9 mmol/L (4-12); Aspartate Amino Transferase 14 U/L (15-37); Bilirubin,Total 0.3 mg/dL (0.00-1.00); Blood Urea Nitrogen 6 mg/dL (7-18); Calcium 8.5 mg/dL (8.5-10.1); Carbon Dioxide 24 mmol/L (21-32); Chloride 104 mmol/L (98-108); Estimated CRCL calculation 129 ml/min; Estimated Glomerular Filt Rate > 60; Glucose 116 mg/dL (70-99); Osmolality Calculated 282 mOsm/kg (285-295); Potassium 3.6 mmol/L (3.5-5.1); Sodium 137 mmol/L (136-145); Total Protein 5.9 g/dL (6.4-8.2)
--- NOTE | 2024-02-22 16:46 | PC.NURSE ---
Lab reports critical DDimer 1.35. ERP made aware.
[2024-02-22 16:53] LABS: Appearance Urine Clear (Clear); Bilirubin Urine Negative (Negative); Blood Urine Negative (Negative); Color Urine Yellow (Yellow); Glucose Urine UA Trace (Negative); Ketones Urine Negative (Negative); Leukocyte Esterase Ur Negative LEU/UL (Negative); Nitrate Urine Negative (Negative); Protein Urine Trace (Negative); Specific Grav Ur 1.025 (1.010-1.020); Urobilinogen Urine 0.2 mg/dL (0.2-1.0)
[2024-02-22 16:59] LABS: Add Urine Microscopic? YES; RBC Urine None seen /hpf (0-2); Squamous Epithelial Cell Urine Moderate /hpf (Few); WBC Urine None seen /hpf (0-3)
[2024-02-22 17:00] LABS: Bacteria Urine 1+ /hpf
[2024-02-22 17:35] VITALS: BP 124/83; PULSE 100; RESP 16; O2SAT 97
--- NOTE | 2024-02-22 18:08 | PC.NURSE ---
Per ERP patient is safe to discharge, will contact patient if OBGYN from [facility] wants anything further.
[2024-02-22 18:09] VITALS: BP 124/83; PULSE 100; RESP 16; TEMP 36.5; O2SAT 97
== END 2024-02-22 18:09 | disposition home or self-care (01) ==
PROVIDERS: Emergency Provider Internal Medicine Critical Care Medicine; PCP Physician Assistant
DX: O26.893 Other specified pregnancy related conditions, third trimester (principal); R60.0 Localized edema; O99.013 Anemia complicating pregnancy, third trimester; D64.9 Anemia, unspecified; Z3A.35 35 weeks gestation of pregnancy
CPT/HCPCS: 36415; 80053; 81001; 85025; 85380; 99283

== ENCOUNTER 2024-03-19 12:19 | Inpatient (IN) | payer OTHER, SELFPAY ==
[2024-03-19] VITALS (112 sets, daily range): BP systolic 95–152; BP diastolic 53–104; PULSE 72–162; TEMP 36.4–37.1; O2SAT 92–100; BMI 37.4
--- NOTE | 2024-03-19 13:05 | LDADM ---
This patient, Amber Fuentes, was admitted to Labor/Delivery/Recovery 104 on 03/19/24 at 12:19. Plans for labor, pain management and were discussed with patient. Patient/family oriented to hospital policies and general routines including ID bracelet, bed and alarms, visiting hours, pain management, procedures, bathroom and other care routines, personal items, smoking policy, room service/diet and guest tray routines, security routines, and visiting hours. Patient/Family are encouraged to report perceived risks to care and to ask questions if they do not understand what they are told or what they should do. See OBIX for further documentation.
[2024-03-19 13:09] LABS: Basophils Percent Auto 0.2 % (0.2-1.2); Eosinophils Percent Auto 0.3 % (0-4.4); Hematocrit 32.1 % (37.0-47.0); Hemoglobin 10.2 g/dL (12.0-15.0); Immature Granulocyte Absolute 0.03 K/mm3 (0.00-0.031); Immature Granulocyte Percent A 0.5 % (0-0.5); Lymphocytes Absolute Auto 1.19 K/mm3 (0.9-3.2); Lymphocytes Percent Auto 20.4 % (18.3-44.2); Mean Corpuscular HGB Conc 31.8 g/dl (32-36); Mean Corpuscular Hemoglobin 28.3 pg (26-34); Mean Corpuscular Volume 89.2 fl (80-100); Mean Platelet Volume 11.8 fl (7.4-10.4); Monocytes Absolute Auto 0.4 K/mm3 (0.1-0.6); Monocytes Percent Auto 6.2 % (2.6-8.5); Neutrophils Absolute Auto 4.2 K/mm3 (1.3-6.7); Neutrophils Percent Auto 72.4 % (45.5-73.1); Platelet Count Result 151 k/mm3 (150-375); Red Cell Distribution Width 14.8 % (11.5-14.5); White Blood Count 5.8 K/mm3 (4.5-10.0)
[2024-03-19] MEDS: LACTATED RINGERS 1,000 ML 125 ML IV CONT ×2 (13:21→19:48)
[2024-03-19] MEDS: OXYTOCIN 30 UNITS/NS 500 ML 30 UNITS/500 ML BAG IV CONT (13:22)
[2024-03-19 13:49] LABS: Rapid Plasma Reagin Non-Reactive (NonReactive)
[2024-03-19 14:00] LABS: HIV 1/2 Ab P24 Ag Result Negative (Negative)
--- NOTE | 2024-03-19 20:10 | WPDANESEPP ---
Anes - Eval Pre Procedure Procedure: Labor Epidural Date/Time: 03/19/24 20:10 Surgeon: Arnol Preop Diagnosis: Labor Pain Pre Op Diagnosis: IOL Patient Data Age: 28 Gender: F Height: 1.75 m Weight: 115 kg Last Vital Signs Temp 36.4 C L 03/19/24 17:31 Pulse 85 03/19/24 20:00 BP 139/92 H 03/19/24 20:00 Pulse Ox 98 03/19/24 20:09 O2 Del Method Room Air 03/19/24 12:59 Allergies Allergy/AdvReac Type Severity Reaction Status Date / Time No Known Allergies Allergy Verified 03/01/24 12:34 Home Medications Medication Instructions Recorded Confirmed Type ferrous sulfate 195 mg (39 mg 35 mg PO DAILY 04/01/22 03/19/24 History iron) tablet prenat.vits,coral,nte-zkwi-ptlkl 1 tablet PO DAILY 04/01/22 03/19/24 History levothyroxine 100 mcg tablet 100 mcg PO DAILY 02/22/24 03/19/24 History aspirin 81 mg chewable tablet 81 mg PO DAILY 03/01/24 03/01/24 History Laboratory Tests 03/19/24 12:47 WBC 5.8 K/mm3 (4.5-10.0) RBC 3.60 L M/mm3 (4.2-5.4) Hgb 10.2 L g/dL (12.0-15.0) Hct 32.1 L % (37.0-47.0) MCV 89.2 fl (80-100) MCH 28.3 pg (26-34) MCHC 31.8 L g/dl (32-36) RDW 14.8 H % (11.5-14.5) Plt Count 151 k/mm3 (150-375) MPV 11.8 H fl (7.4-10.4) Immature Gran % (Auto) 0.5 % (0-0.5) Neut % (Auto) 72.4 % (45.5-73.1) Lymph % (Auto) 20.4 % (18.3-44.2) [place] % (Auto) 6.2 % (2.6-8.5) Eos % (Auto) 0.3 % (0-4.4) Baso % (Auto) 0.2 % (0.2-1.2) Lymph # (Auto) 1.19 K/mm3 (0.9-3.2) [place] # (Auto) 0.4 K/mm3 (0.1-0.6) Eos # (Auto) 0.0 K/mm3 (0-0.3) Baso # (Auto) 0.0 K/mm3 (0.0-0.1) Abs Immat Gran (auto) 0.03 K/mm3 (0.00-0.031) Absolute Neuts (auto) 4.2 K/mm3 (1.3-6.7) Absolute Nucleated RBC 0.000 K/mm3 (0.0-0.012) Nucleated RBC % 0.0 % (0.0-0.2) RPR Non-reactive (NonReactive) HIV 1&2 Ab/P24 Ag 4thGn Negative (Negative) Blood Type A Positive Antibody Screen Negative : gestational age (DWIGHT 03/26/24, ) Patient hx anesthesia problems: none Family hx anesthesia problems: none Results Review: All pre-operative results and documents have been reviewed as part of the pre-operative evaluation. [facility] Past Medical History Medical History Overweight (BMI 25.0-29.9) and not yet delivered Family History Family History Other Healthy adult Social History Social History Smoking status: Never smoker Substance use: never Do You Feel Safe in your Home?: Yes Lack of Transportation: No Lack of Food: Never True Current Housing: I Have Housing Concerned About Future Housing: No Difficulty Paying Gas/Electric Bills: No Difficulty Paying for Meds: No Currently Unemployed: No Education: Don't Know Difficulty w/ Childcare or Family Care: No Spiritual care concerns: No Exam Day of Procedure 03/19/24 20:10 Patient weight: normal Heart: regular rate and rhythm Lungs: normal air movement Airway: Mallampati scale class II Neurological: alert and oriented
[2024-03-20] VITALS (76 sets, daily range): BP systolic 108–171; BP diastolic 60–122; PULSE 67–174; RESP 16–26; TEMP 36–37.8; O2SAT 87–100
[2024-03-20] MEDS: miSOPROStol 200 MCG TABLET 1000 MCG RECTAL (00:02)
[2024-03-20] MEDS: METHYLERGONOVINE MALEATE 0.2 MG/ML VIAL IM (00:04)
[2024-03-20] MEDS: fentaNYL CITRATE INJ (*CRX) 100 MCG/2 ML VIAL 50 MCG IV PUSH (00:17)
[2024-03-20] MEDS: TRANEXAMIC ACID 1,000MG/ISO100 1,000 MG/100 ML BAG 200 MG IVPB (00:22)
--- NOTE | 2024-03-20 00:26 | PM.OBPRVD ---
OB - Vaginal Delivery Note Procedure Delivery date: 03/19/24 Induction method: AROM and Per Pitocin Protocol Delivery monitor: External FHT and Internal Uterine Route of delivery: Episiotomy description: None Laceration Description: Perineal - 1st Degree Delivery repair: vicryl Specimen: No Quantitative Blood Loss (ml): 1,000 Anesthesia type: Epidural Disposition: Floor Complications: Other complications Narrative: baby delivered without difficulty, fundus boggy after delivery of placenta, cytotec rectally, IM methergine, TXA, FROILAN placed, bleeding continued, Uterine exploration, FROILAN suction repositioned, suction canister replaced and then bleeding was slowing down, bedside us confirmed FROILAN placement, VSS, plan 1 unit blood. Pt agrees to plan. Baby Date of : 03/19/24 Time of : 23:48 Weeks of gestation at delivery: 39 Infant gender: Female presentation: vertex position: Left Occiput Anterior Placenta delivery description: Spontaneous Cord Vessel Description: 3 Vessels Narrative: baby skin to skin in stable condition
[2024-03-20] MEDS: ONDANSETRON INJ 4 MG/2 ML VIAL IV PUSH (00:35)
[2024-03-20 00:37] LABS: Basophils Percent Auto 0.2 % (0.2-1.2); Eosinophils Percent Auto 0.5 % (0-4.4); Hematocrit 31.9 % (37.0-47.0); Hemoglobin 10.5 g/dL (12.0-15.0); Immature Granulocyte Absolute 0.08 K/mm3 (0.00-0.031); Immature Granulocyte Percent A 0.9 % (0-0.5); Lymphocytes Absolute Auto 1.45 K/mm3 (0.9-3.2); Lymphocytes Percent Auto 16.6 % (18.3-44.2); Mean Corpuscular HGB Conc 32.9 g/dl (32-36); Mean Corpuscular Hemoglobin 29.5 pg (26-34); Mean Corpuscular Volume 89.6 fl (80-100); Mean Platelet Volume 12.1 fl (7.4-10.4); Monocytes Absolute Auto 0.5 K/mm3 (0.1-0.6); Monocytes Percent Auto 5.5 % (2.6-8.5); Neutrophils Absolute Auto 6.6 K/mm3 (1.3-6.7); Neutrophils Percent Auto 76.3 % (45.5-73.1); Platelet Count Result 163 k/mm3 (150-375); Red Blood Count 3.56 M/mm3 (4.2-5.4); White Blood Count 8.7 K/mm3 (4.5-10.0)
[2024-03-20 00:45] LABS: INR 0.9; Prothrombin Time 12.7 Seconds (11.1-14.7)
[2024-03-20 00:46] LABS: Partial Thromboplastin Time 26.8 Seconds (22.3-36.8)
[2024-03-20 00:52] LABS: Fibrinogen 451 mg/dl (215-510)
[2024-03-20 00:57] LABS: D Dimer 2.03 ug/mL (<0.48)
[2024-03-20] MEDS: BENZOCAINE 20% AER SPR (*SP) 56 GM CAN 1 SPRAY TOPICAL (05:10)
[2024-03-20] MEDS: WITCH HAZEL 40 PADS 1 PAD TOPICAL (05:11)
[2024-03-20] MEDS: IBUPROFEN 600 MG TABLET PO ×2 (05:35→18:45)
[2024-03-20] MEDS: LEVOTHYROXINE SODIUM 100 MCG TABLET PO (07:59)
[2024-03-20] MEDS: POLYSACCHARIDE IRON COMPLEX 150 MG CAPSULE PO (07:59)
[2024-03-20] MEDS: DOCUSATE SODIUM 100 MG CAPSULE PO (07:59)
[2024-03-20 08:07] LABS: Basophils Percent Auto 0.2 % (0.2-1.2); Eosinophils Percent Auto 0.1 % (0-4.4); Hematocrit 31.4 % (37.0-47.0); Hemoglobin 10.3 g/dL (12.0-15.0); Immature Granulocyte Absolute 0.05 K/mm3 (0.00-0.031); Immature Granulocyte Percent A 0.5 % (0-0.5); Lymphocytes Absolute Auto 1.29 K/mm3 (0.9-3.2); Mean Corpuscular HGB Conc 32.8 g/dl (32-36); Mean Corpuscular Hemoglobin 28.9 pg (26-34); Mean Corpuscular Volume 88.2 fl (80-100); Monocytes Absolute Auto 0.7 K/mm3 (0.1-0.6); Monocytes Percent Auto 6.4 % (2.6-8.5); Neutrophils Absolute Auto 8.7 K/mm3 (1.3-6.7); Neutrophils Percent Auto 80.8 % (45.5-73.1); Platelet Count Result 144 k/mm3 (150-375); Red Blood Count 3.56 M/mm3 (4.2-5.4); Red Cell Distribution Width 14.6 % (11.5-14.5); White Blood Count 10.8 K/mm3 (4.5-10.0)
--- NOTE | 2024-03-20 08:40 | PC.NURSE ---
Dr. Doherty at bedside with patient to remove the Melanie device. Afterwards, webb catheter was also removed. Patient tolerated well.
--- NOTE | 2024-03-20 08:42 | PM.OBPNVD ---
OB - PN: Subj Subjective Date/time seen: 03/20/24 08:42 Patient comments: no complaints, pain well controlled, incisional pain, tolerating diet and flatus present OB - PN: Obj Data Labs 03/20/24 08:03 Labs: Laboratory Results - last 24 hr 03/19/24 03/20/24 03/20/24 12:47 00:27 08:03 WBC 5.8 8.7 10.8 H RBC 3.60 L 3.56 L 3.56 L Hgb 10.2 L 10.5 L 10.3 L Hct 32.1 L 31.9 L 31.4 L MCV 89.2 89.6 88.2 MCH 28.3 29.5 28.9 MCHC 31.8 L 32.9 32.8 RDW 14.8 H 15.0 H 14.6 H Plt Count 151 163 144 L MPV 11.8 H 12.1 H 12.0 H Immature Gran % (Auto) 0.5 0.9 H 0.5 Neut % (Auto) 72.4 76.3 H 80.8 H Lymph % (Auto) 20.4 16.6 L 12.0 L [place] % (Auto) 6.2 5.5 6.4 Eos % (Auto) 0.3 0.5 0.1 Baso % (Auto) 0.2 0.2 0.2 Lymph # (Auto) 1.19 1.45 1.29 [place] # (Auto) 0.4 0.5 0.7 H Eos # (Auto) 0.0 0.0 0.0 Baso # (Auto) 0.0 0.0 0.0 Abs Immat Gran (auto) 0.03 0.08 H 0.05 H Absolute Neuts (auto) 4.2 6.6 8.7 H Absolute Nucleated RBC 0.000 0.000 0.000 Nucleated RBC % 0.0 0.0 0.0 PT 12.7 INR 0.9 APTT 26.8 Fibrinogen 451 D-Dimer 2.03 H RPR Non-reactive HIV 1&2 Ab/P24 Ag 4thGn Negative Blood Type A Positive Antibody Screen Negative Crossmatch See Detail OB - PN A/P Plan day: 1 Plan: routine care Comments: No problems, routine care, hemorrhage, 1 L blood loss, removed Melanie this morning, hemostasis. Time Spent With Patient Time: Total time spent is greater than 50% in coordination of care (as documented) at patient's floor/unit and/or counseling patient: Exam Const: General: comfortable, no acute distress and alert Resp: Effort & Inspection: normal respiratory effort Auscultation: no crackles, no rales and no rhonchi Cardio: Rate: regular rate Heart sounds: no click, no murmurs and no rubs GI: Inspection: non-distended GI Palp: No Tenderness to palpation present (GI) Auscultation: normal bowel sounds Other: Incision - CDI Extrem: General: normal to inspection, no pedal edema and no calf tenderness
--- NOTE | 2024-03-20 08:59 | WPDANLDPN2 ---
Anes-Prog Note L&D Date/Time: 03/20/24 08:59 Neuro status: Neuro function grossly intact. Cardiovascular status: normal Respiratory status: normal Airway patency: baseline Mental status: baseline Post-Op hydration status: normal Vital Signs: Last Vital Signs Temp 36.4 C L 03/20/24 08:05 Pulse 67 03/20/24 08:05 Resp 16 03/20/24 08:05 BP 128/67 03/20/24 08:05 Pulse Ox 99 03/20/24 08:05 O2 Del Method Room Air 03/19/24 12:59 Pain score (VAS): 0 I/O: Intake & Output 03/19/24 03/20/24 03/20/24 23:59 07:59 15:59 Intake Total 806.3 325 500 Output Total 1560 Balance 806.3 -1235 500 Post-procedural complaints: none Patient feedback: Patient satisfied with anesthetic care.
[2024-03-20] MEDS: ACETAMINOPHEN 325 MG TABLET 650 MG PO (18:46)
[2024-03-21 04:10] VITALS: BP 127/84; PULSE 93; RESP 18; TEMP 36.9
--- NOTE | 2024-03-21 07:43 | P.PNOB_ITS ---
OB - PN: Subj Subjective Date/time seen: 03/21/24 07:43 Interval history: pp day 2 doing well bottle feeding plan on d/c home today OB - PN: Obj Data Labs 03/20/24 08:03 Labs: Laboratory Results - last 24 hr 03/20/24 08:03 WBC 10.8 H RBC 3.56 L Hgb 10.3 L Hct 31.4 L MCV 88.2 MCH 28.9 MCHC 32.8 RDW 14.6 H Plt Count 144 L MPV 12.0 H Immature Gran % (Auto) 0.5 Neut % (Auto) 80.8 H Lymph % (Auto) 12.0 L [place] % (Auto) 6.4 Eos % (Auto) 0.1 Baso % (Auto) 0.2 Lymph # (Auto) 1.29 [place] # (Auto) 0.7 H Eos # (Auto) 0.0 Baso # (Auto) 0.0 Abs Immat Gran (auto) 0.05 H Absolute Neuts (auto) 8.7 H Absolute Nucleated RBC 0.000 Nucleated RBC % 0.0 OB - PN A/P Time Spent With Patient Time: Total time spent is greater than 50% in coordination of care (as documented) at patient's floor/unit and/or counseling patient:
--- NOTE | 2024-03-21 07:46 | PM.OBDSVD ---
DS: Admitting Diagnosis Discharge Date 03/21/24 Admitting Diagnosis IOL, LGA, IVF DS: Discharge Diagnosis Discharge Diagnosis (1) , delivered: Code(s): O80 - Encounter for full-term uncomplicated delivery Status: Acute OB - DS: Summary OB Procedures : None OB Procedures Intrapartum: Spontaneous Vag Delivery OB Procedures: : Transfusion Peripartum Data Laceration Description: Perineal - 1st Degree Episiotomy description: None Time Spent with Patient Time attestation: Total time spent providing and/or coordinating discharge services: DS: Data Data Completed and Pending Labs on day of discharge: Labs from last 24 hours 03/20/24 08:03 WBC 10.8 H RBC 3.56 L Hgb 10.3 L Hct 31.4 L MCV 88.2 MCH 28.9 MCHC 32.8 RDW 14.6 H Plt Count 144 L MPV 12.0 H Immature Gran % (Auto) 0.5 Neut % (Auto) 80.8 H Lymph % (Auto) 12.0 L [place] % (Auto) 6.4 Eos % (Auto) 0.1 Baso % (Auto) 0.2 Lymph # (Auto) 1.29 [place] # (Auto) 0.7 H Eos # (Auto) 0.0 Baso # (Auto) 0.0 Abs Immat Gran (auto) 0.05 H Absolute Neuts (auto) 8.7 H Absolute Nucleated RBC 0.000 Nucleated RBC % 0.0 Discharge Plan Discharge Attending physician on discharge: Jose Daniel Ambrose Discharging Clinician: Adwoa Huff Patient Disposition: Home, Self-Care Activity: pelvic rest Diet: regular Patient Instructions: Antibiotic Form Stand Alone Forms: General Discharge Information Follow-up/Referrals: Adwoa Huff CNM [Certified Nurse Operations Staff Specialist Security] - 4 Weeks Discharge Medications: New ibuprofen 600 mg Tablet 600 mg PO Q6H PRN (Reason: Cramping) Qty: 30 0RF Continued levothyroxine 100 mcg tablet 100 mcg PO DAILY prenat.vits,coral,lkn-czen-ngcvn Tablet 1 tablet PO DAILY Discontinued ferrous sulfate 195 mg (39 mg iron) Tablet 35 mg PO DAILY aspirin [[place] Low-Dose Aspirin] 81 mg Tablet,Chewable 81 mg PO DAILY Date of admission: 03/19/24 12:19 Primary Care Provider: MeghanRyan Admitting Provider: Jose Daniel Ambrose Attending physician on admission: Jose Daniel Ambrose Condition: Stable
[2024-03-21 07:59] LABS: Hematocrit 29.8 % (37.0-47.0); Hemoglobin 9.5 g/dL (12.0-15.0)
--- NOTE | 2024-03-21 08:30 | PC.NURSE ---
Patient instructed on viewing the discharge video Mother & Baby Care, The First Two Weeks . Patient was given the opportunity and encouraged to ask questions. Patient verbalized understanding of information shared and has been given the mother/baby guide for home reference.
[2024-03-21] MEDS: IBUPROFEN 600 MG TABLET PO (08:34)
[2024-03-21] MEDS: LEVOTHYROXINE SODIUM 100 MCG TABLET PO (08:34)
[2024-03-21] MEDS: DOCUSATE SODIUM 100 MG CAPSULE PO (08:35)
[2024-03-21] MEDS: ACETAMINOPHEN 325 MG TABLET 650 MG PO (08:35)
[2024-03-21] MEDS: HYDROCORTISONE 2.5% CREAM 30 GM TUBE 1 APPLIC (08:45)
[2024-03-21 09:10] VITALS: BP 131/82; PULSE 66; RESP 16; TEMP 36.4; O2SAT 99
[2024-03-22 08:20] VITALS: BP 127/76; PULSE 76; RESP 18; TEMP 36.8; O2SAT 100
== END 2024-03-21 12:43 | disposition home or self-care (01) | DRG 768 ==
LOC: ANHLDR 12:31 → ANHOB2 03-20 05:56
PROVIDERS: Advanced Practice Midwife; Admitting Provider Obstetrics & Gynecology; PCP Physician Assistant; Visit Provider Obstetrics & Gynecology
DX: O70.0 First degree perineal laceration during delivery (principal); Z37.0 Single live birth; O72.1 Other immediate postpartum hemorrhage; Z3A.39 39 weeks gestation of pregnancy
CPT/HCPCS: 36415; 36430; 85014; 85018; 85025; 85380; 85384; 85610; 85730; 86592; 86703; 86850; 86900; 86901; 86923; A9270; G0432; J2210; J2405; J2590; J2795; J3010; J7120; P9016